=== PATIENT | female | born 1965 | race African-American/Black ===

== ENCOUNTER 2021-06-23 11:40 | Emergency (ER) | payer MEDICAID, OTHER ==
[~2021-06-23] VITALS: Ht 160 cm; Wt 92.1 kg
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
--- NOTE | 2021-06-23 12:00 | NUR ---
URINE SPECIMEN COLLECTED AND SENT TO LAB.
[2021-06-23 12:18] LABS: BASOPHILS # (AUTO) 0.1 K/uL (0.0-0.2); HEMATOCRIT 41 % (33-45); HEMOGLOBIN 13.3 g/dL (11.5-14.8); LYMPHOCYTES # (AUTO) 2.5 K/uL (0.8-4.8); LYMPHOCYTES % (AUTO) 36.8 % (20.0-44.0); MEAN CORPUSCULAR HGB CONC 33 g/dl (31.0-36.0); MEAN CORPUSCULAR VOLUME 88 fL (82-100); MONOCYTES # (AUTO) 0.4 K/uL (0.1-1.30); NEUTROPHILS # (AUTO) 3.6 K/uL (1.8-8.9); NEUTROPHILS % (AUTO) 53.2 % (43.0-81.0); PLATELET COUNT (AUTO) 223 K/uL (150-450); RED BLOOD CELL COUNT(AUTO) 4.64 MIL/uL (4.0-5.2); WHITE BLOOD COUNT (AUTO) 6.8 K/uL (4.3-11.0)
[2021-06-23 12:39] LABS: BILIRUBIN,URINE NEGATIVE (NEGATIVE); COLOR,URINE YELLOW (YELLOW); NITRITE, URINE POSITIVE (NEGATIVE); PROTEIN,URINE NEGATIVE (NEGATIVE); UGLUCOSE >=1000 mg/dL (NEGATIVE); UROBILINOGEN,URINE 0.2 EU/dL (0.2)
[2021-06-23 12:45] LABS: ALBUMIN 3.1 g/dL (3.4-5.0); BILIRUBIN,DIRECT 0.1 mg/dL (0.0-0.2); BILIRUBIN,TOTAL 0.3 mg/dL (0.2-1.0); CREATININE 0.9 mg/dL (0.6-1.3); POTASSIUM 3.4 mmol/L (3.5-5.1); TOTAL PROTEIN, SERUM 6.9 g/dL (6.4-8.2)
[2021-06-23 12:53] LABS: BACTERIA,URINE Moderate /HPF (None Seen); LEUKOCYTE ESTERASE ,URINE 1+ (NEGATIVE); SQUAMOUS EPITHELIAL CELL,UR Few /HPF (None Seen)
[2021-06-23] MEDS ORDERED: IV NS 0.9% 1,000 ML BAG IV ONE (13:00)
[2021-06-23] MEDS ORDERED: CEFTRIAXONE 1GM BAG (ER ONLY) 1 GM/50 ML PIGGYBACK IV ONE (13:00)
[2021-06-23] MEDS ORDERED: CEFTRIAXONE 1GM BAG (ER ONLY) 50 ML IV ONE (13:01)
[2021-06-23] MEDS ORDERED: INSULIN REGULAR, HUMAN 100 UNIT/ML 10 ML VIAL IV ONE (15:30)
[2021-06-23] MEDS ORDERED: CEPHALEXIN MONOHYDRATE 500 MG CAPSULE PO ONE (15:57)
[2021-06-23] MEDS ORDERED: CEPH500C2 PO (16:01)
--- NOTE | 2021-06-23 16:03 | NUR ---
SPOKE WITH [facility] PHARMACIST AND NO DIABETES MEDICATIONS WERE ON FILE
[2021-06-23] MEDS ORDERED: METF-440 PO (16:07)
--- NOTE | 2021-06-23 16:35 | NUR ---
BS 297, DR VIDAL AWARE
--- NOTE | 2021-06-23 16:41 | NUR ---
MICHAEL RODRIGUEZ CALLED FOR PSYCH EVAL. STATES WILL CALL IN 30MINS.
--- NOTE | 2021-06-23 17:15 | NUR ---
Pt requested the IV to be removed. Catheter intact and site benign. Pressure and 4x4 applied to site. No bleeding noted.
--- NOTE | 2021-06-23 17:20 | NUR ---
PT LEFT THE FACILITY WITH THE DAUGHTER AND DAUGHTER WILL ASSUME RESPONSIBILITY WITH THE PT, DR.[email or web address] [email or web address].
[2021-06-23 17:33] VITALS: BP 135/84
[2021-06-24] MEDS ORDERED: METFORMIN 500 MG TABLET PO ONE (07:00)
[2021-06-24] MEDS ORDERED: CEPHALEXIN MONOHYDRATE 500 MG CAPSULE PO ONE (09:00)
== END 2021-06-23 17:35 | disposition left against medical advice (07) ==
LOC: ER 11:41
DX: E11.65 Type 2 diabetes mellitus with hyperglycemia (principal); Z79.84 Long term (current) use of oral hypoglycemic drugs; N39.0 Urinary tract infection, site not specified; F25.9 Schizoaffective disorder, unspecified; E78.00 Pure hypercholesterolemia, unspecified; I10 Essential (primary) hypertension; Z20.822 Contact with and (suspected) exposure to COVID-19; Z53.20 Procedure and treatment not carried out because of patient's decision for unspecified reasons
CPT/HCPCS: 36415; 80048; 80076; 80143; 80307; 80320; 81001; 82962 ×2; 85025; 87077; 87086; 87186; 87426; 96365; 96375; 99284; C9803; J0696; G0480